=== PATIENT | male | born 2000 | race Two or more races ===

== ENCOUNTER 2023-08-12 15:52 | Emergency (ER) | payer OTHER ==
[~2023-08-12] VITALS: Ht 185.4 cm; Wt 74.8 kg
== END 2023-08-12 18:48 | disposition home or self-care (01) ==
LOC: ER 15:54
DX: S62.102A Fracture of unspecified carpal bone, left wrist, initial encounter for closed fracture (principal); W18.39XA Other fall on same level, initial encounter; Y93.66 Activity, soccer; Y92.838 Other recreation area as the place of occurrence of the external cause